=== PATIENT | male | born 1950 | race Caucasian/White ===

== ENCOUNTER → 2024-05-13 14:18 | Outpatient (REF) | payer MEDICARE, OTHER, SELFPAY | LOC: HWRAD 14:18 | PROVIDERS: ATTENDING PHYSICIAN Internal Medicine | DX: R91.8 Other nonspecific abnormal finding of lung field (principal) | CPT/HCPCS: 71260; Q9967 ==

== ENCOUNTER 2024-06-22 06:12 | Day surgery (SDC) | payer MEDICARE, OTHER, SELFPAY ==
[2024-06-22] VITALS (11 sets, daily range): BP systolic 94–134; BP diastolic 52–86; BMI 29.6
== END 2024-06-22 12:10 | disposition home or self-care (01) ==
LOC: SDS 06:12
PROVIDERS: ATTENDING PHYSICIAN Internal Medicine Critical Care Medicine
DX: C78.01 Secondary malignant neoplasm of right lung (principal); R91.8 Other nonspecific abnormal finding of lung field; R06.02 Shortness of breath
CPT/HCPCS: 31629; 31627; 31625; 31623; 31624; 31628; 88172; 88173; 88305; 71045; 76000; 87015; 87070; 87102; 87116; 87205; 88112; 88177; 88333; 88334; 88341; 88342; 94640; C1887

== ENCOUNTER → 2024-07-14 15:12 | Outpatient (REF) | payer MEDICARE, OTHER, SELFPAY ==
[2024-07-14 14:34] LABS: % Basophils 0.8 % (0-2); % Eosinophils 4.9 % (0-6); % Immature Granulocytes 0.3 % (0-0.5); % Lymphocytes 29.6 % (20.5-51.1); % Monocytes 9.1 % (1.7-9.3); % Neutrophils 55.3 % (42.2-75.2); Absolute Basophils 0.1 10^3/uL (0-0.2); Absolute Eosinophils 0.4 10^3/uL (0-0.7); Absolute Lymphocytes 2.2 10^3/uL (1.2-3.4); Absolute Monocytes 0.7 10^3/uL (0.1-0.6); Absolute Neutrophils 4.1 10^3/uL (1.4-6.5); Hematocrit 43.7 % (39.0-52.0); Hemoglobin 15.6 g/dL (13.0-18.0); Mean Corp Hgb Conc. 35.7 g/dL (33.0-37.0); Mean Corpuscular Hgb 32.4 pg (27.0-31.0); Mean Corpuscular Volume 90.9 fL (80.0-94.0); Mean Platelet Volume 9.4 fL (7.4-10.4); Platelet Count 223 10^3/uL (130-400); Red Blood Cell Count 4.81 10^6/uL (4.70-6.10); Red Cell Dist. Width 12.6 % (11.5-14.5); White Blood Cell Count 7.4 10^3/uL (4.8-10.8)
[2024-07-14 15:32] LABS: ALT (SGPT) 47 U/L (0-50); AST (SGOT) 33 U/L (17-59); Albumin 4.5 g/dl (3.5-5.0); Alkaline Phosphatase 57 U/L (38-126); Blood Urea Nitrogen 13 mg/dl (9-20); Calcium 9.9 mg/dl (8.4-10.2); Carbon Dioxide 22 mmol/L (22-30); Chloride 104 mmol/L (98-107); Glucose 99 mg/dl (70-99); Potassium 4.4 mmol/L (3.5-5.1); Sodium 141 mmol/L (135-145); Total Bilirubin 0.6 mg/dl (0.2-1.3); Total Protein 7.1 g/dl (6.3-8.2); eGFR 58.37
[2024-07-14 15:47] LABS: Free T4 1.43 ng/dl (0.78-2.19)
[2024-07-14 16:02] LABS: TSH 0.27 uIU/ml (0.47-4.68)
== END ==
LOC: OIDL 15:12
PROVIDERS: ATTENDING PHYSICIAN Internal Medicine Hematology & Oncology
DX: C61 Malignant neoplasm of prostate (principal); C64.9 Malignant neoplasm of unspecified kidney, except renal pelvis; R91.8 Other nonspecific abnormal finding of lung field; R53.82 Chronic fatigue, unspecified
CPT/HCPCS: 80053; 84439; 84443; 85025

== ENCOUNTER → 2024-07-19 14:29 | Outpatient (REF) | payer MEDICARE, OTHER, SELFPAY ==
[2024-07-19 16:12] LABS: HIV Combo Negative (Negative)
[2024-07-21 04:31] LABS: IgA 244 mg/dl (70-400); IgG 1030 mg/dl (700-1600); IgM 40 mg/dl (40-230)
== END ==
LOC: REG 14:29
PROVIDERS: ATTENDING PHYSICIAN Student in an Organized Health Care Education/Training Program; FAMILY PHYSICIAN Internal Medicine
DX: A00-B99 Certain infectious and parasitic diseases (principal)
CPT/HCPCS: 36415; 82784; 87389

== ENCOUNTER → 2024-08-23 12:05 | Outpatient (REF) | payer OTHER, MEDICARE, SELFPAY ==
[2024-08-23 13:27] LABS: % Basophils 0.5 % (0-2); % Eosinophils 1.4 % (0-6); % Immature Granulocytes 0.5 % (0-0.5); % Lymphocytes 7.6 % (20.5-51.1); % Monocytes 9.8 % (1.7-9.3); % Neutrophils 80.2 % (42.2-75.2); Absolute Basophils 0.1 10^3/uL (0-0.2); Absolute Eosinophils 0.2 10^3/uL (0-0.7); Absolute Immature Granulocytes 0.1 10^3/uL (0-0.05); Absolute Monocytes 1.3 10^3/uL (0.1-0.6); Absolute Neutrophils 10.5 10^3/uL (1.4-6.5); Hematocrit 47.7 % (39.0-52.0); Hemoglobin 17.5 g/dL (13.0-18.0); Mean Corp Hgb Conc. 36.7 g/dL (33.0-37.0); Mean Corpuscular Hgb 32.7 pg (27.0-31.0); Mean Corpuscular Volume 89.2 fL (80.0-94.0); Mean Platelet Volume 9.3 fL (7.4-10.4); Nucleated Red Blood Cells % 0 % (-); Platelet Count 220 10^3/uL (130-400); Red Blood Cell Count 5.35 10^6/uL (4.70-6.10); Red Cell Dist. Width 12.8 % (11.5-14.5); White Blood Cell Count 13.1 10^3/uL (4.8-10.8)
[2024-08-23 13:58] LABS: ALT (SGPT) 53 U/L (0-50); AST (SGOT) 40 U/L (17-59); Albumin 5.1 g/dl (3.5-5.0); Alkaline Phosphatase 57 U/L (38-126); Blood Urea Nitrogen 13 mg/dl (9-20); Calcium 10.7 mg/dl (8.4-10.2); Carbon Dioxide 27 mmol/L (22-30); Chloride 99 mmol/L (98-107); Glucose 110 mg/dl (70-99); Potassium 4.9 mmol/L (3.5-5.1); Sodium 141 mmol/L (135-145); Total Bilirubin 0.9 mg/dl (0.2-1.3); Total Protein 8.1 g/dl (6.3-8.2)
[2024-08-23 14:28] LABS: TSH Reflex To Free T4 2.61 uIU/ml (0.47-4.68)
== END ==
LOC: REG 12:05
PROVIDERS: ATTENDING PHYSICIAN Internal Medicine Hematology & Oncology; FAMILY PHYSICIAN Internal Medicine
DX: E03.9 Hypothyroidism, unspecified (principal); C61 Malignant neoplasm of prostate; C64.9 Malignant neoplasm of unspecified kidney, except renal pelvis; R91.8 Other nonspecific abnormal finding of lung field
CPT/HCPCS: 36415; 80053; 84443; 85025

== ENCOUNTER → 2024-10-18 15:10 | Outpatient (REF) | payer MEDICARE, OTHER, SELFPAY ==
[2024-10-18 16:08] LABS: ALT (SGPT) 36 U/L (0-50); AST (SGOT) 36 U/L (17-59); Albumin 4.8 g/dl (3.5-5.0); Alkaline Phosphatase 61 U/L (38-126); Blood Urea Nitrogen 15 mg/dl (9-20); Carbon Dioxide 24 mmol/L (22-30); Chloride 100 mmol/L (98-107); Glucose 98 mg/dl (70-99); Potassium 4.5 mmol/L (3.5-5.1); Sodium 136 mmol/L (135-145); Total Bilirubin 0.8 mg/dl (0.2-1.3); Total Protein 7.6 g/dl (6.3-8.2); eGFR > 60.00
== END ==
LOC: REG 15:10
PROVIDERS: ATTENDING PHYSICIAN Internal Medicine; REFERRING PHYSICIAN Internal Medicine Hematology & Oncology
DX: C64.9 Malignant neoplasm of unspecified kidney, except renal pelvis (principal); E03.9 Hypothyroidism, unspecified
CPT/HCPCS: 36415; 80053; 84443

== ENCOUNTER → 2024-11-08 15:06 | Outpatient (REF) | payer MEDICARE, OTHER, SELFPAY ==
[2024-11-08 16:58] LABS: ALT (SGPT) 35 U/L (0-50); AST (SGOT) 36 U/L (17-59); Alkaline Phosphatase 70 U/L (38-126); Blood Urea Nitrogen 14 mg/dl (9-20); Carbon Dioxide 21 mmol/L (22-30); Chloride 103 mmol/L (98-107); Glucose 96 mg/dl (70-99); Potassium 4.9 mmol/L (3.5-5.1); Sodium 136 mmol/L (135-145); Total Bilirubin 0.9 mg/dl (0.2-1.3); Total Protein 7.6 g/dl (6.3-8.2); eGFR > 60.00
[2024-11-08 17:14] LABS: Free T4 0.97 ng/dl (0.78-2.19)
[2024-11-08 17:15] LABS: % Basophils 1.2 % (0-2); % Eosinophils 7.1 % (0-6); % Immature Granulocytes 0.3 % (0-0.5); % Lymphocytes 25.9 % (20.5-51.1); % Monocytes 15.1 % (1.7-9.3); % Neutrophils 50.4 % (42.2-75.2); Absolute Basophils 0.1 10^3/uL (0-0.2); Absolute Eosinophils 0.5 10^3/uL (0-0.7); Absolute Lymphocytes 1.9 10^3/uL (1.2-3.4); Absolute Monocytes 1.1 10^3/uL (0.1-0.6); Absolute Neutrophils 3.6 10^3/uL (1.4-6.5); Hemoglobin 16.1 g/dL (13.0-18.0); Mean Corp Hgb Conc. 35.8 g/dL (33.0-37.0); Mean Corpuscular Hgb 32.3 pg (27.0-31.0); Mean Corpuscular Volume 90.4 fL (80.0-94.0); Mean Platelet Volume 9.2 fL (7.4-10.4); Nucleated Red Blood Cells % 0 % (-); Platelet Count 230 10^3/uL (130-400); Red Blood Cell Count 4.98 10^6/uL (4.70-6.10); Red Cell Dist. Width 13.5 % (11.5-14.5); White Blood Cell Count 7.2 10^3/uL (4.8-10.8)
[2024-11-10 21:02] LABS: Total T3 (Sendout) 70 ng/dL (80-200)
== END ==
LOC: REG 15:06
PROVIDERS: ATTENDING PHYSICIAN Internal Medicine Hematology & Oncology; FAMILY PHYSICIAN Internal Medicine
DX: C61 Malignant neoplasm of prostate (principal); C64.9 Malignant neoplasm of unspecified kidney, except renal pelvis; R91.8 Other nonspecific abnormal finding of lung field; E03.9 Hypothyroidism, unspecified
CPT/HCPCS: 36415; 80053; 84439; 84443; 84480; 85025

== ENCOUNTER → 2024-11-25 13:52 | Outpatient (REF) | payer MEDICARE, OTHER, SELFPAY ==
[2024-11-25 15:34] LABS: TSH Reflex To Free T4 8.62 uIU/ml (0.47-4.68)
== END ==
LOC: REG 13:52
PROVIDERS: ATTENDING PHYSICIAN Internal Medicine
DX: E03.9 Hypothyroidism, unspecified (principal)
CPT/HCPCS: 36415; 84439; 84443

== ENCOUNTER → 2024-12-23 14:31 | Outpatient (REF) | payer MEDICARE, OTHER, SELFPAY ==
[2024-12-23 16:15] LABS: % Basophils 1.1 % (0-2); % Eosinophils 8.6 % (0-6); % Immature Granulocytes 0.3 % (0-0.5); % Monocytes 11.2 % (1.7-9.3); % Neutrophils 54.8 % (42.2-75.2); Absolute Basophils 0.1 10^3/uL (0-0.2); Absolute Eosinophils 0.5 10^3/uL (0-0.7); Absolute Lymphocytes 1.5 10^3/uL (1.2-3.4); Absolute Monocytes 0.7 10^3/uL (0.1-0.6); Absolute Neutrophils 3.4 10^3/uL (1.4-6.5); Hematocrit 46.3 % (39.0-52.0); Hemoglobin 16.5 g/dL (13.0-18.0); Mean Corp Hgb Conc. 35.6 g/dL (33.0-37.0); Mean Corpuscular Hgb 32.6 pg (27.0-31.0); Mean Corpuscular Volume 91.5 fL (80.0-94.0); Mean Platelet Volume 9.6 fL (7.4-10.4); Nucleated Red Blood Cells % 0 % (-); Platelet Count 224 10^3/uL (130-400); Red Blood Cell Count 5.06 10^6/uL (4.70-6.10); Red Cell Dist. Width 13.5 % (11.5-14.5); White Blood Cell Count 6.2 10^3/uL (4.8-10.8)
[2024-12-23 16:29] LABS: ALT (SGPT) 31 U/L (0-50); AST (SGOT) 30 U/L (17-59); Albumin 4.3 g/dl (3.5-5.0); Alkaline Phosphatase 75 U/L (38-126); Blood Urea Nitrogen 17 mg/dl (9-20); Calcium 10.2 mg/dl (8.4-10.2); Carbon Dioxide 24 mmol/L (22-30); Chloride 103 mmol/L (98-107); Glucose 91 mg/dl (70-99); Sodium 138 mmol/L (135-145); Total Bilirubin 0.7 mg/dl (0.2-1.3); Total Protein 7.3 g/dl (6.3-8.2); eGFR > 60.00
[2024-12-23 16:43] LABS: Free T4 1.45 ng/dl (0.78-2.19)
[2024-12-23 16:57] LABS: TSH 5.92 uIU/ml (0.47-4.68)
[2024-12-25 15:05] LABS: Total T3 (Sendout) 97 ng/dL (80-200)
== END ==
LOC: REG 14:31
PROVIDERS: ATTENDING PHYSICIAN Internal Medicine Hematology & Oncology; FAMILY PHYSICIAN Internal Medicine
DX: C61 Malignant neoplasm of prostate (principal); D64.9 Anemia, unspecified; R91.8 Other nonspecific abnormal finding of lung field; C64.9 Malignant neoplasm of unspecified kidney, except renal pelvis
CPT/HCPCS: 36415; 80053; 84439; 84443; 84480; 85025

== ENCOUNTER → 2025-01-30 14:36 | Outpatient (REF) | payer MEDICARE, OTHER, SELFPAY ==
[2025-01-30 15:47] LABS: % Immature Granulocytes 0.2 % (0-0.5); % Lymphocytes 26.3 % (20.5-51.1); % Monocytes 11.3 % (1.7-9.3); % Neutrophils 52.2 % (42.2-75.2); Absolute Basophils 0.1 10^3/uL (0-0.2); Absolute Eosinophils 0.6 10^3/uL (0-0.7); Absolute Lymphocytes 1.7 10^3/uL (1.2-3.4); Absolute Monocytes 0.7 10^3/uL (0.1-0.6); Absolute Neutrophils 3.3 10^3/uL (1.4-6.5); Hematocrit 44.2 % (39.0-52.0); Hemoglobin 16.1 g/dL (13.0-18.0); Mean Corp Hgb Conc. 36.4 g/dL (33.0-37.0); Mean Corpuscular Hgb 33.4 pg (27.0-31.0); Mean Corpuscular Volume 91.7 fL (80.0-94.0); Mean Platelet Volume 9.8 fL (7.4-10.4); Nucleated Red Blood Cells % 0 % (-); Platelet Count 208 10^3/uL (130-400); Red Blood Cell Count 4.82 10^6/uL (4.70-6.10); Red Cell Dist. Width 13.2 % (11.5-14.5); White Blood Cell Count 6.3 10^3/uL (4.8-10.8)
[2025-01-30 16:00] LABS: ALT (SGPT) 25 U/L (0-50); AST (SGOT) 26 U/L (17-59); Albumin 4.2 g/dl (3.5-5.0); Alkaline Phosphatase 55 U/L (38-126); Blood Urea Nitrogen 18 mg/dl (9-20); Calcium 10.3 mg/dl (8.4-10.2); Carbon Dioxide 26 mmol/L (22-30); Chloride 105 mmol/L (98-107); Glucose 89 mg/dl (70-99); Potassium 5.2 mmol/L (3.5-5.1); Sodium 140 mmol/L (135-145); Total Bilirubin 0.7 mg/dl (0.2-1.3); Total Protein 6.9 g/dl (6.3-8.2); eGFR > 60.00
[2025-01-30 16:18] LABS: Free T4 1.24 ng/dl (0.78-2.19)
[2025-01-30 16:32] LABS: TSH 8.24 uIU/ml (0.47-4.68)
[2025-02-01 13:48] LABS: Total T3 (Sendout) 89 ng/dL (80-200)
== END ==
LOC: REG 14:36
PROVIDERS: ATTENDING PHYSICIAN Internal Medicine Hematology & Oncology; FAMILY PHYSICIAN Internal Medicine
DX: C61 Malignant neoplasm of prostate (principal); C64.9 Malignant neoplasm of unspecified kidney, except renal pelvis; R91.8 Other nonspecific abnormal finding of lung field; R53.82 Chronic fatigue, unspecified
CPT/HCPCS: 36415; 80053; 84439; 84443; 84480; 85025

== ENCOUNTER → 2025-03-20 14:19 | Outpatient (REF) | payer MEDICARE, OTHER, SELFPAY ==
[2025-03-20 15:47] LABS: % Basophils 1.2 % (0-2); % Eosinophils 8.2 % (0-6); % Immature Granulocytes 0.4 % (0-0.5); % Lymphocytes 25.9 % (20.5-51.1); % Monocytes 9.9 % (1.7-9.3); % Neutrophils 54.4 % (42.2-75.2); Absolute Basophils 0.1 10^3/uL (0-0.2); Absolute Eosinophils 0.5 10^3/uL (0-0.7); Absolute Lymphocytes 1.5 10^3/uL (1.2-3.4); Absolute Monocytes 0.6 10^3/uL (0.1-0.6); Absolute Neutrophils 3.1 10^3/uL (1.4-6.5); Hematocrit 44.2 % (39.0-52.0); Hemoglobin 15.9 g/dL (13.0-18.0); Mean Corpuscular Hgb 32.8 pg (27.0-31.0); Mean Corpuscular Volume 91.1 fL (80.0-94.0); Mean Platelet Volume 10.1 fL (7.4-10.4); Nucleated Red Blood Cells % 0 % (-); Platelet Count 190 10^3/uL (130-400); Red Blood Cell Count 4.85 10^6/uL (4.70-6.10); White Blood Cell Count 5.6 10^3/uL (4.8-10.8)
[2025-03-20 16:11] LABS: ALT (SGPT) 24 U/L (0-50); AST (SGOT) 23 U/L (17-59); Albumin 4.5 g/dl (3.5-5.0); Alkaline Phosphatase 59 U/L (38-126); Blood Urea Nitrogen 12 mg/dl (9-20); Carbon Dioxide 20 mmol/L (22-30); Chloride 109 mmol/L (98-107); Glucose 105 mg/dl (70-99); Potassium 4.5 mmol/L (3.5-5.1); Sodium 140 mmol/L (135-145); Total Bilirubin 0.8 mg/dl (0.2-1.3); Total Protein 7.2 g/dl (6.3-8.2); eGFR > 60.00
[2025-03-20 16:24] LABS: Free T4 1.65 ng/dl (0.78-2.19)
[2025-03-20 16:38] LABS: TSH 3.83 uIU/ml (0.47-4.68)
[2025-03-23 04:15] LABS: Total T3 (Sendout) 91 ng/dL (80-200)
== END ==
LOC: REG 14:19
PROVIDERS: ATTENDING PHYSICIAN Internal Medicine Hematology & Oncology; FAMILY PHYSICIAN Internal Medicine
DX: C61 Malignant neoplasm of prostate (principal); C64.9 Malignant neoplasm of unspecified kidney, except renal pelvis; R91.8 Other nonspecific abnormal finding of lung field; E03.9 Hypothyroidism, unspecified
CPT/HCPCS: 36415; 80053; 84439; 84443; 84480; 85025

== ENCOUNTER → 2025-04-05 17:22 | Outpatient (REF) | payer MEDICARE, OTHER, SELFPAY | LOC: RAD 17:22 | PROVIDERS: ATTENDING PHYSICIAN Nurse Practitioner Primary Care; FAMILY PHYSICIAN Internal Medicine; REFERRING PHYSICIAN Internal Medicine Hematology & Oncology | DX: C61 Malignant neoplasm of prostate (principal); C64.9 Malignant neoplasm of unspecified kidney, except renal pelvis; R91.8 Other nonspecific abnormal finding of lung field; Z92.26 Personal history of immune checkpoint inhibitor therapy; E03.9 Hypothyroidism, unspecified | CPT/HCPCS: 71260; Q9967 ==

== ENCOUNTER → 2025-04-19 13:59 | Outpatient (REF) | payer MEDICARE, OTHER, SELFPAY ==
[2025-04-19 15:55] LABS: Hematocrit 45.8 % (39.0-52.0); Hemoglobin 16.4 g/dL (13.0-18.0); Mean Corp Hgb Conc. 35.8 g/dL (33.0-37.0); Mean Corpuscular Volume 92.7 fL (80.0-94.0); Nucleated Red Blood Cells % 0 % (-); Platelet Count 229 10^3/uL (130-400); Red Cell Dist. Width 13.0 % (11.5-14.5)
[2025-04-19 16:09] LABS: ALT (SGPT) 29 U/L (0-50); AST (SGOT) 28 U/L (17-59); Albumin 5.1 g/dl (3.5-5.0); Alkaline Phosphatase 62 U/L (38-126); Blood Urea Nitrogen 16 mg/dl (9-20); Calcium 10.4 mg/dl (8.4-10.2); Carbon Dioxide 25 mmol/L (22-30); Chloride 105 mmol/L (98-107); Glucose 100 mg/dl (70-99); Iron 114 ug/dl (49-181); Potassium 4.9 mmol/L (3.5-5.1); Sodium 137 mmol/L (135-145); Total Protein 8.1 g/dl (6.3-8.2); eGFR > 60.00
[2025-04-19 16:18] LABS: Total Iron Binding Capacity 356 ug/dl (261-462)
[2025-04-19 16:20] LABS: Troponin I < 0.012 ng/ml
[2025-04-19 16:43] LABS: Ferritin 132.0 ng/ml (17.9-464.0)
[2025-04-19 17:15] LABS: Folate > 20.0 ng/ml (2.76-20); Vitamin B12 529 pg/ml (239-931)
== END ==
LOC: REG 13:59
PROVIDERS: ATTENDING PHYSICIAN Nurse Practitioner Adult Health; FAMILY PHYSICIAN Internal Medicine; OTHER PHYSICIAN Internal Medicine Hematology & Oncology
DX: C61 Malignant neoplasm of prostate (principal); C64.9 Malignant neoplasm of unspecified kidney, except renal pelvis; R91.8 Other nonspecific abnormal finding of lung field; Z92.26 Personal history of immune checkpoint inhibitor therapy; E03.9 Hypothyroidism, unspecified; Z79.899 Other long term (current) drug therapy
CPT/HCPCS: 36415; 80053; 82550; 82607; 82728; 82746; 83540; 83550; 84443; 84484; 85025

== ENCOUNTER → 2025-05-02 14:56 | Outpatient (REF) | payer MEDICARE, OTHER, SELFPAY ==
[2025-05-02 16:19] LABS: Hematocrit 43.2 % (39.0-52.0); Hemoglobin 15.6 g/dL (13.0-18.0); Mean Corp Hgb Conc. 36.1 g/dL (33.0-37.0); Mean Corpuscular Volume 92.7 fL (80.0-94.0); Nucleated Red Blood Cells % 0 % (-); Platelet Count 235 10^3/uL (130-400); Red Cell Dist. Width 12.9 % (11.5-14.5)
[2025-05-02 16:46] LABS: ALT (SGPT) 34 U/L (0-50); AST (SGOT) 26 U/L (17-59); Albumin 4.4 g/dl (3.5-5.0); Alkaline Phosphatase 54 U/L (38-126); Blood Urea Nitrogen 25 mg/dl (9-20); Calcium 9.6 mg/dl (8.4-10.2); Carbon Dioxide 21 mmol/L (22-30); Chloride 108 mmol/L (98-107); Glucose 88 mg/dl (70-99); Potassium 5.0 mmol/L (3.5-5.1); Sodium 138 mmol/L (135-145); Total Protein 6.9 g/dl (6.3-8.2); eGFR > 60.00
[2025-05-03 11:09] LABS: Cortisol, Random 9.8 ug/dl
== END ==
LOC: REG 14:56
PROVIDERS: ATTENDING PHYSICIAN Nurse Practitioner Adult Health; FAMILY PHYSICIAN Internal Medicine
DX: C61 Malignant neoplasm of prostate (principal); C64.9 Malignant neoplasm of unspecified kidney, except renal pelvis; R91.8 Other nonspecific abnormal finding of lung field; Z92.26 Personal history of immune checkpoint inhibitor therapy; E03.9 Hypothyroidism, unspecified
CPT/HCPCS: 36415; 80053; 82533; 85025

== ENCOUNTER → 2025-05-11 13:44 | Outpatient (REF) | payer MEDICARE, OTHER, SELFPAY ==
[2025-05-11 15:51] LABS: ALT (SGPT) 33 U/L (0-50); AST (SGOT) 29 U/L (17-59); Albumin 4.9 g/dl (3.5-5.0); Alkaline Phosphatase 64 U/L (38-126); Blood Urea Nitrogen 16 mg/dl (9-20); Calcium 10.1 mg/dl (8.4-10.2); Carbon Dioxide 24 mmol/L (22-30); Chloride 106 mmol/L (98-107); Glucose 106 mg/dl (70-99); Potassium 4.7 mmol/L (3.5-5.1); Sodium 140 mmol/L (135-145); Total Protein 7.5 g/dl (6.3-8.2); eGFR > 60.00
== END ==
LOC: HWLAB 13:44
PROVIDERS: ATTENDING PHYSICIAN Internal Medicine Hematology & Oncology; FAMILY PHYSICIAN Internal Medicine
DX: C61 Malignant neoplasm of prostate (principal); C64.9 Malignant neoplasm of unspecified kidney, except renal pelvis; R91.8 Other nonspecific abnormal finding of lung field; E03.9 Hypothyroidism, unspecified
CPT/HCPCS: 36415; 80053

== ENCOUNTER → 2025-05-23 15:18 | Outpatient (REF) | payer MEDICARE, OTHER, SELFPAY ==
[2025-05-23 16:01] LABS: D-Dimer 0.28 ug/mlFEU (0.00-0.50)
[2025-05-23 16:40] LABS: Cortisol, Random 8.1 ug/dl
== END ==
LOC: REG 15:18
PROVIDERS: ATTENDING PHYSICIAN Internal Medicine Hematology & Oncology; FAMILY PHYSICIAN Internal Medicine
DX: C61 Malignant neoplasm of prostate (principal); C64.9 Malignant neoplasm of unspecified kidney, except renal pelvis; R91.8 Other nonspecific abnormal finding of lung field; Z92.26 Personal history of immune checkpoint inhibitor therapy; E03.9 Hypothyroidism, unspecified; G90.09 Other idiopathic peripheral autonomic neuropathy; R53.82 Chronic fatigue, unspecified
CPT/HCPCS: 36415; 82533; 85379

== ENCOUNTER → 2025-06-08 12:31 | Outpatient (REF) | payer MEDICARE, OTHER, SELFPAY ==
[2025-06-08 14:20] LABS: HDL Cholesterol 45 mg/dl; LDL Cholesterol, Calculated 89 mg/dl; Very Low Density Lipoprotein 27 mg/dl (0-30)
== END ==
LOC: REG 12:31
PROVIDERS: ATTENDING PHYSICIAN Internal Medicine
DX: E03.9 Hypothyroidism, unspecified (principal)
CPT/HCPCS: 36415; 80061; 84443

== ENCOUNTER → 2025-08-08 10:29 | Outpatient (REF) | payer MEDICARE, OTHER, SELFPAY ==
[2025-08-08 12:57] LABS: Hematocrit 43.2 % (39.0-52.0); Hemoglobin 14.7 g/dL (13.0-18.0); Mean Corp Hgb Conc. 34.0 g/dL (33.0-37.0); Mean Corpuscular Volume 95.2 fL (80.0-94.0); Nucleated Red Blood Cells % 0 % (-); Platelet Count 197 10^3/uL (130-400); Red Cell Dist. Width 13.2 % (11.5-14.5)
[2025-08-08 13:06] LABS: ALT (SGPT) 33 U/L (0-50); AST (SGOT) 22 U/L (17-59); Albumin 4.2 g/dl (3.5-5.0); Alkaline Phosphatase 59 U/L (38-126); Blood Urea Nitrogen 16 mg/dl (9-20); Calcium 9.7 mg/dl (8.4-10.2); Carbon Dioxide 27 mmol/L (22-30); Chloride 104 mmol/L (98-107); Glucose 112 mg/dl (70-99); Potassium 4.6 mmol/L (3.5-5.1); Sodium 138 mmol/L (135-145); Total Protein 6.6 g/dl (6.3-8.2); eGFR > 60.00
== END ==
LOC: HWLAB 10:29
PROVIDERS: ATTENDING PHYSICIAN Nurse Practitioner Adult Health; FAMILY PHYSICIAN Internal Medicine
DX: C61 Malignant neoplasm of prostate (principal); C64.9 Malignant neoplasm of unspecified kidney, except renal pelvis; R91.8 Other nonspecific abnormal finding of lung field; Z92.26 Personal history of immune checkpoint inhibitor therapy; E03.9 Hypothyroidism, unspecified; G90.09 Other idiopathic peripheral autonomic neuropathy; R53.82 Chronic fatigue, unspecified
CPT/HCPCS: 36415; 80053; 85025

== ENCOUNTER → 2025-09-14 14:40 | Outpatient (REF) | payer MEDICARE, OTHER, SELFPAY ==
[2025-09-14 16:08] LABS: PSA, Total - Screen 0.46 ng/ml (0.0-4.0)
== END ==
LOC: REG 14:40
PROVIDERS: ATTENDING PHYSICIAN Internal Medicine
DX: E03.9 Hypothyroidism, unspecified (principal); R03.0 Elevated blood-pressure reading, without diagnosis of hypertension; R79.9 Abnormal finding of blood chemistry, unspecified; R35.1 Nocturia; Z12.5 Encounter for screening for malignant neoplasm of prostate
CPT/HCPCS: 36415; G0103